=== PATIENT | female | born 1960 | race Caucasian/White ===

== ENCOUNTER 2016-10-18 09:04 | Inpatient (IN) | payer OTHER ==
[~2016-10-18] VITALS: Ht 167.6 cm; Wt 101.0 kg
[~2016-10-18 09:04] MED LIST: BACITRACIN 50,000 UNIT ONE; BUPIVACAINE/PF-EPI 0.5% 1:200K ONE; THROMBIN 5,000 UNIT VIAL TP ONE
[2016-10-18] MEDS ORDERED: MIDAZOLAM 1 MG/ML, 2ML ONE (10:08)
[2016-10-18] MEDS ORDERED: FENTANYL PF 250 MCG/5ML ONE (10:08)
[2016-10-18] MEDS ORDERED: LACTATED RINGERS 1,000 ML IV SCH (10:16)
[2016-10-18] MEDS ORDERED: LEVO100T41 PO (10:19)
[2016-10-18 10:30] VITALS: BP 163/112
[2016-10-18] MEDS ORDERED: NEOSTIGMINE 1 MG/ML, 10ML ONE (11:32)
[2016-10-18] MEDS ORDERED: ROCURONIUM 10 MG/ML ONE (11:32)
[2016-10-18] MEDS ORDERED: GLYCOPYRROLATE 0.2MG/1ML ONE (11:32)
[2016-10-18] MEDS ORDERED: CEFAZOLIN 1,000 MG ONE (11:32)
[2016-10-18] MEDS ORDERED: PROPOFOL 10 MG/ML, 20ML ONE (11:32)
[2016-10-18] MEDS ORDERED: ONDANSETRON 2MG/ML, 2ML ONE (11:32)
[2016-10-18] MEDS ORDERED: SUCCINYLCHOLINE 20 MG/ML, 10ML ONE (11:32)
[2016-10-18] MEDS ORDERED: HYDROmorphone 1 MG/ML, 1ML IV PRN (12:00)
[2016-10-18] MEDS ORDERED: ACETAMINOPHEN 325 MG TABLET PO PRN (12:00)
[2016-10-18] MEDS ORDERED: PLEASE ENTER ALLERGIES MC SCH ×2 (12:00)
[2016-10-18] MEDS ORDERED: LABETALOL 5MG/ML, 20ML IV PRN (12:00)
[2016-10-18] MEDS ORDERED: ONDANSETRON 2MG/ML, 2ML IVPush PRN ×2 (12:00→14:00)
[2016-10-18] MEDS ORDERED: hydrALAzine 20 MG/ML, 1ML IV PRN (12:00)
[2016-10-18] MEDS ORDERED: METOCLOPRAMIDE 5 MG/ML, 2ML IV PRN (12:00)
[2016-10-18] MEDS ORDERED: OXYcodone 5 MG/5 ML ORAL.SOL UDC PO PRN (12:00)
[2016-10-18] MEDS ORDERED: BACITRACIN OINT 500U/GM, 15 GM ONE (12:12)
[2016-10-18] MEDS ORDERED: PHARMACY MAY ADJ FOR RENAL FX MC PRN (14:00)
[2016-10-18] MEDS ORDERED: HYDROmorphone PCA 30 MG/30 ML IV PRN (14:00)
[2016-10-18] MEDS ORDERED: BISACODYL 10 MG SUPP PR PRN (14:00)
[2016-10-18] MEDS ORDERED: DIPHENHYDRAMINE 50 MG CAPSULE PO PRN (14:00)
[2016-10-18] MEDS ORDERED: MAGNESIUM HYDROXIDE 8%, 30ML UDC PO PRN (14:00)
[2016-10-18] MEDS ORDERED: SENNA/DOCUSATE TABLET PO PRN (14:00)
[2016-10-18] MEDS ORDERED: HYDROmorphone 2MG TABLET PO PRN (14:00)
[2016-10-18] MEDS ORDERED: PROMETHAZINE 25 MG/ML, 1ML IM PRN (14:00)
[2016-10-18] MEDS ORDERED: HYDROmorphone PCA 30 MG/30 ML ONE (14:00)
[2016-10-18] MEDS ORDERED: FENTANYL PF 100 MCG/2ML ONE ×2 (14:00→14:42)
[2016-10-18] MEDS ORDERED: HYDROcodone/APAP 5/325 TABLET PO PRN (14:00)
[2016-10-18] MEDS: FENTANYL PF 100 MCG/2ML IV PRN ×4 (14:05→14:50)
[2016-10-18 15:37] VITALS: BP 131/73
[2016-10-18] MEDS: NS + 20MEQ KCL 1,000 ML IV SCH (18:30)
[2016-10-18] MEDS: CEFAZOLIN PMX 1GM/50ML 50 ML IVPB SCH (20:06)
[2016-10-18] MEDS: SODIUM CHLORIDE FLUSH 10ML SYR IVF SCH (20:36)
[2016-10-18 21:54] VITALS: BP 116/61
[2016-10-18] MEDS: CYCLOBENZAPRINE 10 MG TABLET PO PRN (23:10)
[2016-10-19 00:23] VITALS: BP 109/56
[2016-10-19 04:13] VITALS: BP 113/63
[2016-10-19] MEDS: CEFAZOLIN PMX 1GM/50ML 50 ML IVPB SCH (04:13)
[2016-10-19 08:44] VITALS: BP 141/70
[2016-10-19] MEDS: SODIUM CHLORIDE FLUSH 10ML SYR IVF SCH ×2 (08:47→21:33)
[2016-10-19] MEDS: LEVOTHYROXINE 100 MCG TABLET PO SCH (08:47)
[2016-10-19] MEDS: HYDROcodone/APAP 10/325 MG TABLET PO PRN ×3 (08:47→21:33)
[2016-10-19] MEDS: NS + 20MEQ KCL 1,000 ML IV SCH ×2 (08:47→19:31)
[2016-10-19 15:30] VITALS: BP 115/68
[2016-10-19 21:18] VITALS: BP 108/69
[2016-10-19] MEDS: CYCLOBENZAPRINE 10 MG TABLET PO PRN (21:32)
[2016-10-20 01:10] VITALS: BP 106/72
[2016-10-20] MEDS: HYDROcodone/APAP 10/325 MG TABLET PO PRN ×3 (01:27→12:03)
[2016-10-20] MEDS ORDERED: PNEUMOCOCCAL 23 VACCINE IM-VACC ONE (05:00)
[2016-10-20] MEDS: CYCLOBENZAPRINE 10 MG TABLET PO PRN (05:16)
[2016-10-20 08:46] VITALS: BP 85/48
[2016-10-20] MEDS: SODIUM CHLORIDE FLUSH 10ML SYR IVF SCH (08:52)
[2016-10-20] MEDS: LEVOTHYROXINE 100 MCG TABLET PO SCH (08:52)
[2016-10-20 10:01] VITALS: BP_SYST 125
[2016-10-20] MEDS: NS + 20MEQ KCL 1,000 ML IV SCH (10:40)
[2016-10-20] MEDS ORDERED: HYDR-3307 PO (11:21)
[2016-10-20] MEDS ORDERED: CYCL-259 PO (11:21)
[2016-10-20 11:49] VITALS: BP 109/69
== END 2016-10-20 12:15 | disposition home or self-care (01) | DRG 517 ==
LOC: OUT 09:04 → 4NOR 15:35 → OUT 17:34 → 4NOR 17:35 → OBSVTOIN 10-19 14:48
PROVIDERS: ADMIT Neurological Surgery; ATTEND Neurological Surgery
PROC: 01NB0ZZ Release Lumbar Nerve, Open Approach (ICD-10-PCS; principal; 2016-10-19)
DX: M48.06 Spinal stenosis, lumbar region (principal); M54.16 Radiculopathy, lumbar region; I10 Essential (primary) hypertension; E03.9 Hypothyroidism, unspecified; F17.210 Nicotine dependence, cigarettes, uncomplicated; Z88.5 Allergy status to narcotic agent
CPT/HCPCS: 72100; 90732; G0378; J0690; J1170; J2250; J2405; J2704; J2710; J3010; J3480; J3490; J0330; J7120